=== PATIENT | male | born 1975 | race Caucasian/White ===

== ENCOUNTER 2017-11-01 17:18 | Emergency (ER) | payer MEDICAID, MEDICARE ==
[~2017-11-01] VITALS: Ht 177.8 cm; Wt 81.6 kg
[2017-11-01] MEDS ORDERED: ONDANSETRON PF 4 MG/2 ML VIAL. IV ONE (17:45)
[2017-11-01] MEDS ORDERED: fentaNYL PF VIAL 100 MCG/2 ML VIAL IV ONE ×2 (17:45→19:15)
--- NOTE | 2017-11-01 18:00 | PHYS DOC ---
Adult General Chief Complaint Chief Complaint: DIZZY/LIGHT HEADED HPI HPI Patient is a 42 year old Male who presents with security at [facility] today and became overheated and short of air. Patient states he started getting leg cramps abdominal cramps, nausea. Patient states he also has a bad flank pain that he states is mainly on the right flank side. Patient rates his pain a 10 out 10. Patient is a dialysis patient that he gets dialysis on Tuesdays, , Saturdays and states that he has been getting dialysis. The only medication the patient is on his lisinopril and has no known drug allergies. States he drank 2 bottles of water and still urinates a small amount. Review of Systems Review of Systems Constitutional: Denies fever or chills [] Eyes: Denies change in visual acuity, redness, or eye pain [] HENT: Denies nasal congestion or sore throat [] Respiratory: Denies cough or shortness of breath [] Cardiovascular: No additional information not addressed in HPI [] GI: Abdominal pain, nausea. Denies vomiting, bloody stools or diarrhea [] : Denies dysuria or hematuria. Bilateral flank pain. [] Musculoskeletal: Denies back pain or joint pain [] Integument: Denies rash or skin lesions [] Neurologic: Denies headache, focal weakness or sensory changes. Dizziness. [] Endocrine: Denies polyuria or polydipsia [] All other systems were reviewed and found to be within normal limits, except as documented in this note. Current Medications Current Medications Current Medications Medications (Trade) Dose Ordered Sig/Carmelo Start Time Stop Time Status Last Admin Dose Admin Fentanyl Citrate (Fentanyl 2ml Vial) 25 mcg 1X ONCE 11/01/17 19:15 11/01/17 19:16 DC Ondansetron HCl (Zofran) 4 mg 1X ONCE 11/01/17 17:45 11/01/17 18:00 DC 11/01/17 17:45 4 MG Sodium Chloride 500 ml @ 500 mls/hr 1X ONCE 11/01/17 19:30 11/01/17 20:15 DC 11/01/17 19:28 500 MLS/HR Allergies Allergies Allergies Coded Allergies Type Severity Reaction Last Updated Verified No Known Drug Allergies 11/01/17 No Physical Exam Physical Exam Constitutional: Well developed, well nourished, no acute distress, non-toxic appearance. [] HENT: Normocephalic, atraumatic, bilateral external ears normal, oropharynx moist, no oral exudates, nose normal. [] Eyes: PERRLA, EOMI, conjunctiva normal, no discharge. [] Neck: Normal range of motion, no tenderness, supple, no stridor. [] Cardiovascular:Heart rate regular rhythm, no murmur [] Lungs & Thorax: Bilateral breath sounds clear to auscultation [] Abdomen: Bowel sounds normal, soft, no tenderness, no masses, no pulsatile masses. [] Skin: Warm, dry, no erythema, no rash. [] Back: No tenderness, no CVA tenderness. [] Extremities: No tenderness, no cyanosis, no clubbing, ROM intact, no edema. [] Neurologic: Alert and oriented X 3, normal motor function, normal sensory function, no focal deficits noted. [] Psychologic: Affect normal, judgement normal, mood normal. [] Current Patient Data Vital Signs Vital Signs Date Time Temp Pulse Resp B/P (MAP) Pulse Ox O2 Delivery O2 Flow Rate FiO2 11/01/17 20:00 92 97 11/01/17 17:27 98.5 16 132/81 (98) Room Air 98.5 Lab Values Laboratory Tests Test 11/01/17 18:45 White Blood Count 6.0 x10^3/uL (4.0-11.0) Red Blood Count 3.39 x10^6/uL (4.30-5.70) L Hemoglobin 10.4 g/dL (13.0-17.5) L Hematocrit 30.4 % (39.0-53.0) L Mean Corpuscular Volume 90 fL (79-100) Mean Corpuscular Hemoglobin 31 pg (25-35) Mean Corpuscular Hemoglobin Concent 34 g/dL (31-37) Red Cell Distribution Width 13.5 % (11.5-14.5) Platelet Count 219 x10^3/uL (140-400) Neutrophils (%) (Auto) 72 % (31-73) Lymphocytes (%) (Auto) 18 % (24-48) L Monocytes (%) (Auto) 6 % (0-9) Eosinophils (%) (Auto) 3 % (0-3) Basophils (%) (Auto) 1 % (0-3) Neutrophils # (Auto) 4.3 x10^3uL (1.8-7.7) Lymphocytes # (Auto) 1.1 x10^3/uL (1.0-4.8) Monocytes # (Auto) 0.3 x10^3/uL (0.0-1.1) Eosinophils # (Auto) 0.2 x10^3/uL (0.0-0.7) Basophils # (Auto) 0.1 x10^3/uL (0.0-0.2) Sodium Level 131 mmol/L (136-145) L Potassium Level 4.4 mmol/L (3.5-5.1) Chloride Level 93 mmol/L (98-107) L Carbon Dioxide Level 26 mmol/L (21-32) Anion Gap 12 (6-14) Blood Urea Nitrogen 21 mg/dL (8-26) Creatinine 7.5 mg/dL (0.7-1.3) H Estimated GFR (Cockcroft-Gault) 8.1 Glucose Level 96 mg/dL (70-99) Calcium Level 8.7 mg/dL (8.5-10.1) Troponin I Quantitative < 0.017 ng/mL (0.000-0.055) Laboratory Tests 11/01/17 18:45 Laboratory Tests 11/01/17 18:45 EKG EKG Sinus rhythm, no STEMI and read by Dr. Newell[] Interpretation Time: 1904 Radiology/Procedures Radiology/Procedures [] Course & Med Decision Making Course & Med Decision Making Patient is a 42 year old Male who presents with security at [facility] today and became overheated and short of air. Patient states he started getting leg cramps abdominal cramps, nausea. Patient states he also has a bad flank pain that he states is mainly on the right flank side. Patient rates his pain a 10 out 10. Patient is a dialysis patient that he gets dialysis on Tuesdays, , Saturdays and states that he has been getting dialysis. The only medication the patient is on his lisinopril and has no known drug allergies. States he drank 2 bottles of water and still urinates a small amount. Upon examination patient has no abdominal tenderness, abdomen is soft and no masses. Patient has no extremity swelling. Patient's alert and oriented and neurologically intact. Patient denies any numbness or tingling. Patient has CVA tenderness bilaterally. Patient's heart rate is regular. Patient's heart rate is 107, 16 respirations, 97% on room air, blood pressure is 132/81, temp is 98 5. Patient states that while he was at work he was having some chest pain but is no longer having chest pain. Patient states his flank pain is what is really hurting him and he rates it a 10 out 10. Patient denies any vomiting but states that he was slightly nauseated. The only medication he states he takes his lisinopril daily. Patient skin is pink, warm and dry. Patient is given fentanyl 25mcg and Zofran in the ED today. 1858: Patient is stating he wants to leave and go home and does not want to stay for further treatment. Blood work has been sent off but patient is refusing , fluid or urine specimen and states he wants to leave. Patient is alert and oriented and steady on his feet. Patient will sign out AMA. Patient is to return to the ED if he becomes dizzy, lightheaded, begins having intense flank or abdominal pain. Patient is told to return to the ED if he begins having chest pain, shortness of air, diarrhea, or vomiting. Patient states that he feels better for medication that was given 10. Patient is able to hold down fluid and has not vomited. Vital signs are stable. 1900: Patient is now agreeing to stay in to give a urine specimen. Patient EKG is sinus rhythm and no STEMI was read by Dr. Newell. Patient is given another 25mcg fentanyl for flank pain that he still rates out of 10. Patient is also given a 500 mL saline bolus. Patient will get a CT abdomen pelvis without contrast due to severe CVA tenderness and pain. Patient is alert and oriented in has not had any more nausea and has not vomited. 1938: Patient has now decided to leave [place] again. Patient refused CT scan. Patient did receive his fluid bolus. Patient is leaving A in stable condition and is alert, oriented, and stable on his feet.. [] Dragon Disclaimer Dragon Disclaimer This electronic medical record was generated, in whole or in part, using a voice recognition dictation system. Departure Departure Impression: Primary Impression: Heat cramp, initial encounter Additional Impressions: Dehydration Flank pain Disposition: AGAINST MEDICAL ADVICE Condition: STABLE Referrals: LISA KILGORE (PCP) Patient Instructions: Chest Pain (Nonspecific), Dehydration, Adult, Flank Pain Additional Instructions: Follow up with your primary care tomorrow. Drink water tonight. Return immediately to the ED if you have chest pain, shortness of air, dizziness, nausea, vomiting, abdominal pain, muscle cramps, intense flank pain, fever, extremity swelling. Attending Signature Attending Signature I have reviewed the PA/GRIEF COUNSELOR's note and plan of care. I was available for consultation as needed during the patient's visit in the emergency department. I agree with the clinical impression, plan, and disposition. Problem Qualifiers VIRGINIE MELENDEZ APRN Nov 01, 2017 18:00 ALONDRA NEWELL DO Nov 03, 2017 04:25
[2017-11-01 19:05] LABS: BASO # 0.1 x10^3/uL (0.0-0.2); BASO % 1 % (0-3); EOS # 0.2 x10^3/uL (0.0-0.7); EOS % 3 % (0-3); HEMATOCRIT 30.4 % (39.0-53.0); HEMOGLOBIN 10.4 g/dL (13.0-17.5); LYMPH # 1.1 x10^3/uL (1.0-4.8); LYMPH % 18 % (24-48); MEAN CORPUSCULAR HEMOGLOBIN 31 pg (25-35); MEAN CORPUSCULAR HGB CONC 34 g/dL (31-37); MEAN CORPUSCULAR VOLUME 90 fL (79-100); MONO # 0.3 x10^3/uL (0.0-1.1); MONO % 6 % (0-9); NEUT # 4.3 x10^3uL (1.8-7.7); NEUT % 72 % (31-73); PLATELET COUNT 219 x10^3/uL (140-400); RED BLOOD COUNT 3.39 x10^6/uL (4.30-5.70); RED CELL DISTRIBUTION WIDTH 13.5 % (11.5-14.5)
[2017-11-01 19:19] LABS: CALCIUM 8.7 mg/dL (8.5-10.1); CREATININE 7.5 mg/dL (0.7-1.3); GFR 8.1; POTASSIUM 4.4 mmol/L (3.5-5.1)
--- NOTE | 2017-11-01 19:28 | EKG ---
[facility] [address] [place] [id number] Test Date: 2017-11-01 Test Time: 19:05:53 Pat Name: TOBIAS ROCK Department: Room: Gender: M Editor Publications: : 1975 Requested By: VIRGINIE MELENDEZ Order Number: [id number] Reading MD: Ed Cardenas Measurements Intervals [place] Rate: 90 P: 62 WI: 166 QRS: 4 QRSD: 90 T: 42 QT: 382 QTc: 472 Interpretive Statements SINUS RHYTHM Electronically Signed On 11-04-2017 11:09:58 CDT by Ed Cardenas
[2017-11-01] MEDS ORDERED: IV NORMAL SALINE 500ML BAG 500 ML IV ONE (19:30)
[2017-11-01 20:00] VITALS: BP 163/104
== END 2017-11-01 20:05 | disposition left against medical advice (07) ==
LOC: ER 17:18
DX: T67.2XXA Heat cramp, initial encounter (principal); E86.0 Dehydration; R10.9 Unspecified abdominal pain; R06.02 Shortness of breath; Z99.2 Dependence on renal dialysis; X58.XXXA Exposure to other specified factors, initial encounter; Y93.89 Activity, other specified; Y92.89 Other specified places as the place of occurrence of the external cause; Y99.8 Other external cause status
CPT/HCPCS: 36415; 80048; 84484; 85025; 93005; 96361; 96374; 96375; 99285; J2405; J3010; J7040